=== PATIENT | female | born 1975 | race Caucasian/White ===

== ENCOUNTER 2017-11-01 19:49 | Emergency (ER) | payer BC ==
[2017-11-01 20:18] VITALS: BP 140/84
--- NOTE | 2017-11-01 20:31 | EDM.PDOC ---
ED HPI GENERAL MEDICAL PROBLEM - General Chief Complaint: General Stated Complaint: RIGHT foot ULCER Time Seen by Provider: 11/01/17 20:25 Source of Information: Reports: Patient History Limitations: Reports: No Limitations - History of Present Illness INITIAL COMMENTS - FREE TEXT/NARRATIVE: Patient is a 42-year-old female who presents to the emergency department this evening with a complaint of right foot pain. Patient states that she has a chronic wart on the bottom of her right foot and became more painful today and thinks it is leaking. 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 Denies any trauma, fever, or yellow discharge from wart. Onset: Gradual Duration: Chronic Location: Reports: Lower Extremity, Right Quality: Reports: Ache Severity: Mild Improves with: Reports: None Worsens with: Reports: Movement Context: Reports: Other (Denies any trauma) Associated Symptoms: Reports: No Other Symptoms Right Posterior Feet Pain Score (Numeric/FACES): 8 - Related Data Allergies Allergy/AdvReac Type Severity Reaction Status Date / Time No Known Allergies Allergy Verified 11/01/17 20:18 Home Meds: Home Meds Acetaminophen [Tylenol] 650 mg PO Q4HR PRN 11/30/16 [History] Ibuprofen 200 mg PO Q6HR PRN 11/30/16 [History] Past Medical History Respiratory History: Reports: Intubation, Previous Gastrointestinal History: Reports: Hemorrhoids [employer]ESS[employer]UCATION History: Reports: , Spontaneous Musculoskeletal History: Reports: Other (See Below) Other Musculoskeletal History: Broken finger Psychiatric History: Reports: Anxiety - Past Surgical History HEENT Surgical History: Reports: Other (See Below) Social & Family History - Tobacco Use Smoking Status *Q: Current Every Day Smoker Years of Tobacco use: 20 Packs/Tins Daily: 1 - Caffeine Use Caffeine Use: Reports: Coffee, Soda - Recreational Drug Use Recreational Drug Use: No ED ROS GENERAL - Review of Systems Review Of Systems: ROS reveals no pertinent complaints other than HPI. Constitutional: Reports: No Symptoms HEENT: Reports: No Symptoms Respiratory: Reports: No Symptoms Cardiovascular: Reports: No Symptoms Endocrine: Reports: No Symptoms GI/Abdominal: Reports: No Symptoms : Reports: No Symptoms Musculoskeletal: Reports: Foot Pain Skin: Reports: Other (Right plantar wart) Neurological: Reports: No Symptoms Psychiatric: Reports: No Symptoms Hematologic/Lymphatic: Reports: No Symptoms Immunologic: Reports: No Symptoms ED EXAM, GENERAL - Physical Exam Exam: See Below Exam Limited By: No Limitations General Appearance: Alert, WD/WN, No Apparent Distress Throat/Mouth: Normal Inspection, Normal Oropharynx, No Airway Compromise Respiratory/Chest: No Respiratory Distress Extremities: Normal Inspection Neurological: Alert, Oriented, Normal Cognition Psychiatric: Normal Affect, Normal Mood Skin Exam: Warm, Dry, Intact, Normal Color, No Rash, Other (Right mid foot plantar wart. 1 cm in circumference. No erythema, discharge, or tracking noted.) Lymphatic: No Adenopathy Course - Vital Signs Last Recorded V/S: Last Vital Signs Temp 98.4 F 11/01/17 20:13 Pulse 83 11/01/17 20:13 Resp 16 11/01/17 20:13 BP 140/84 11/01/17 20:13 Pulse Ox 96 11/01/17 20:13 - Re-Assessments/Exams Free Text/Narrative Re-Assessment/Exam: 11/01/17 20:30 Patient afebrile, nontoxic appearing, vital signs stable. Patient will follow- up with PCP and deposit refund clerk for consideration of excision of plantar wart. Departure - Departure Time of Disposition: 20:30 Disposition: Home, Self-Care 01 Condition: Good Clinical Impression: Plantar wart of right foot - Discharge Information Instructions: Plantar Warts, [id number] Referrals: Karime Rojas PA-C [Primary Care Provider] - Additional Instructions: Follow-up at [facility] in 1-2 days for referral to podiatry. - Assessment/Plan Assessment:: Plantar wart Plan: Follow-up with PCP
== END 2017-11-01 20:40 | disposition home or self-care (01) ==
LOC: KA.ED 19:49
DX: B07.0 Plantar wart (principal); F17.210 Nicotine dependence, cigarettes, uncomplicated
CPT/HCPCS: 99283